=== PATIENT | female | born 1995 | race Caucasian/White ===

== ENCOUNTER 2020-08-16 08:32 | Inpatient (IN) ==
[2020-08-16] MEDS ORDERED: OXYTOCIN 30 UNITS/500 ML BAG IV PRN ×3 (08:34→09:29)
[2020-08-16 09:39] LABS: Hematocrit (blood only) 28.8 % (37-47); Hemoglobin 9.7 g/dL (12.0-16.0); Mean Corpuscular Hgb Conc 33.7 g/dL (32-36); Mean Corpuscular Volume 80.2 fL (80-100); Platelet Count 238 K/uL (130-400); RDW Coefficient of Variation 14.1 % (11.5-14.5); RDW Standard Deviation 41.4 fL (36.4-46.3); Red Blood Count 3.59 M/uL (4.2-5.4); White Blood Count 7.19 K/uL (4.8-10.8)
--- NOTE | 2020-08-16 10:06 | History & Physical Report ---
Date of Service August 16, 2020 Assessment & Plan (1) Supervision of high-risk : IOL at 39wk. Planned due to anticipating patient would be anticoagulated. In reality patient has been noncompliant, however she still desires IOL at 39wk. The IOL proceeds therefore as an essentially elective induction, which allows us to ensure she is using SCD's while in bed, and is not going to begin using her lovenox at home and then arrive in labor while actually anticoagulated. She is extremely high risk for DVT/PE given her history of same, active smoking and refusal to anticoagulate. She is also a known alliance party to local CYS teams and is aware that we will be consulting case management and obtaining a UDS to assist them in following along with her as she brings home this new . Plan for IOL is to begin with pitocin, ultimately AROM, and epidural on request. Admission and Anticipated Discharge Date Admission Date: August 16, 2020 History of Present Illness Primary Care Provider: NO PCP 25yo P3 admitted for planned IOL at 39wk due to h/o PE's with prescribed anticoagulation, patient noncompliant for at least one month and is actively smoking, plus social complications. On admission patient has no obstetric complaints. Accepts Case management consult and UDS. Aware that we will apply SCD's that must be worn while in bed. No sign of pre-existing clot on admission, varices noted however. Allergies Allergy/AdvReac Type Severity Reaction Status Date / Time No Known Allergies Allergy Verified 08/15/20 14:58 Past Med/Surg History Medical History Abnormal biochemical finding on screening of mother Asthma Very rare rescue inhaler Encounter for supervision of normal Post depression Surgical History No history of previous surgery Family History Mother Diabetes Aunt Thyroid disease Denies family history of Ovarian cancer Breast cancer Colorectal cancer Social History Smoking Status: Current every day smoker Age Started Using Tobacco: 13; packs per day: 1; Years Smoked: 13; Cigarettes Per Day: 3; Second Hand Exposure: Yes; Do You Dip or Chew Tobacco: No; Tobacco Cessation Education Requested by Patient: No Hx Alcohol Use: No Hx Substance Use: No Preferred Language: Uzbek Coding Educator Required: No Beliefs That Will Affect Care: None marital status: marital status details: Dakota Benitez (20) [phone] Current Living Situation: Family Current Living Situation Comment: NATALIA stays with her sometimes but does not live there current occupational status: employed current occupation: [employer] Other Information That Helps Us Care for You: No Feels Safe at Home: Yes Safety Concerns: Feels Safe At This Time Assistive Devices: None Physical Exam Physical Exam: /-2 intact FHT Cat 1 [place] rare ctx Results & Data Results & Data ([facility]) Vital Signs (Past 12 Hours) Vital Signs Pulse BP 08/16/20 08:44 88 114/64 Code Status & VTE Plan VTE Prophylaxis Plan VTE Prophylaxis will be ordered: Yes PG Care Time/CCT Total # of Minutes Spent Total Time Spent with Patient: Total time spent is greater than 50% in coordination of care (as documented) at patient's floor/unit and/or counseling patient: Coding Level of Care Code None Diagnoses Supervision of high-risk O09.90
[2020-08-16] MEDS: LACTATED RINGER'S 1,000 ML IV PRN ×4 (10:10→19:55)
[2020-08-16 10:27] LABS: Amphetamines+Metham, Urine Neg (Neg); Barbiturates, Urine Neg (Neg); Benzodiazepine, Urine Neg (Neg); Cocaine, Urine Neg (Neg); MDMA (Ecstacy), Urine Neg (Neg); Methadone, Urine Neg (Neg); Opiate, Urine Neg (Neg); Phencyclidine, Urine Neg (Neg)
--- NOTE | 2020-08-16 15:03 | Labor Progress Brief Note ---
Date of Service August 16, 2020 Subjective Patient asleep when I arrived. Assessment & Plan Admission and Anticipated Discharge Date Admission Date: August 16, 2020 Physical Exam Physical Exam: /-2 AROM clear FHT Cat 1 [place] Q5 Results & Data ([facility]) Vital Signs (Past 12 Hours) Vital Signs Temp Pulse Resp BP 08/16/20 14:51 71 98/56 L 08/16/20 14:11 75 96/54 L 08/16/20 12:49 74 103/63 08/16/20 11:47 72 100/55 L 08/16/20 11:10 97.5 F L 72 18 92/54 L 08/16/20 10:16 77 104/64 08/16/20 08:44 88 114/64 08/16/20 08:42 97.9 F 18 Coding Level of Care Code None
[2020-08-16] MEDS ORDERED: BUPIVACAINE 0.25% 30 ML VIAL ONE (15:58)
[2020-08-16] MEDS ORDERED: fentaNYL citrate 100 MCG/2 ML VIAL ONE (15:58)
[2020-08-16] MEDS ORDERED: SODIUM CHLORIDE 0.9% INJ 10 ML VIAL ONE (15:58)
[2020-08-16] MEDS ORDERED: ePHEDrine sulfate 50 MG/ML AMP ONE (15:58)
[2020-08-16] MEDS ORDERED: fentaNYL 2MCG/ML ROPIVACAINE 1.25MG/ML 100 ML BAG EPI ONE (15:58)
[2020-08-16] MEDS ORDERED: NALOXONE HCL 0.4 MG/1 ML VIAL/CARP IV PRN (17:07)
[2020-08-16] MEDS ORDERED: fentaNYL 2MCG/ML ROPIVACAINE 1.25MG/ML 100 ML BAG EPI PRN (17:07)
[2020-08-16] MEDS ORDERED: NALOXONE HCL 1 MG in SODIUM CHLORIDE 0.9% 1000ML 1,000 ML IV PRN (17:07)
[2020-08-16] MEDS ORDERED: diphenhydrAMINE 50 MG/ML VIAL IV PRN (17:07)
--- NOTE | 2020-08-16 17:07 | Anesthesiology Consultation ---
Date of Service August 16, 2020 Assessment & Plan (1) Encounter for pre-operative examination: Chart Review Chart Review: Patient NOT seen in Pre Admission Testing and Acceptable Risk for Labor Epidural Consults Requested none ASA ASA2 Proposed Anesthesia Anesthesia Type: Labor Epidural Risk / Benefits Reviewed With: PT / POA / Parent / Guardian, Accepts Plan and Informed Consent Obtained History Height/Weight Height: 5 ft 3 in Weight: 86.183 kg Allergies Allergy/AdvReac Type Severity Reaction Status Date / Time No Known Allergies Allergy Verified 08/15/20 14:58 Medications Active Medications Generic Name Dose Route Start Last Admin Trade Name Freq PRN Reason Stop Dose Admin Lactated Ringer's 1,000 mls @ 125 mls/hr 08/16/20 08:34 08/16/20 16:57 Lr IV 08/18/20 08:33 125 mls/hr .Q8H PRN Infusion L&D Protocol Protocol Oxytocin 30 units in 500 mls @ 17 mls/hr 08/16/20 08:37 08/16/20 15:00 Pitocin IV 08/18/20 08:36 1.02 units/hr .Q24H PRN 17 mls/hr Labor Induction/Augmentation Titration Protocol 1.02 UNITS/HR NPO Date Last Intake of Fluids: 08/16/20 Time Last Intake of Fluids: 06:00 Date Last Intake of Solids: 08/15/20 Time Last Intake of Solids: 06:00 Past Medical History Medical History Abnormal biochemical finding on screening of mother Asthma Very rare rescue inhaler Encounter for supervision of normal Post depression Exercise / Class Metabolic Activity II 4-5 Yardwork/Stairs/Walk up hill Past Family History Family History Mother Diabetes Aunt Thyroid disease Denies family history of Ovarian cancer Breast cancer Colorectal cancer Past Surgical History Surgical History No history of previous surgery Past Anesthesia History No Hx of Anesthesia Complications and No Family Hx of Anesthesia Complications History of PONV No Hx of PONV and No Hx of Motion Sickness Social History Smoking Status: Current every day smoker tobacco type: cigarettes Smoking cigarettes per day: 3 Do You Dip or Chew Tobacco: No Hx Alcohol Use: No Alcohol type: wine Hx Substance Use: No substance use type: former substance user and marijuana Last Used Substance Other:: December 2019 Physical Exam Vital Signs Last Vital Signs Temp 36.5 C 08/16/20 16:52 Pulse 93 H 08/16/20 17:00 Resp 20 08/16/20 16:52 BP 104/55 L 08/16/20 16:58 Pulse Ox 98 08/16/20 17:00 ENMT Mouth: no dentition abnormality Thyromental Distance: > or= 3.5 Finger Breadths Mallampati Class: II Neck normal visual inspection Respiratory normal respiratory effort Auscultation: lungs clear to auscultation bilaterally Cardiovascular Rate/Rhythm: regular rate and regular rhythm Psychiatric Orientation: alert Testing Laboratory Results 08/16/20 09:01
[2020-08-16] MEDS: ONDANSETRON INJ 2 MG/ML 2 ML VIAL IV PRN ×2 (17:22→23:31)
[2020-08-16] MEDS: ePHEDrine sulfate 50 MG/ML AMP IV PRN ×3 (18:53→19:33)
[2020-08-16] MEDS ORDERED: METHYLERGONOVINE MALEATE 0.2 MG/ML AMP ONE (22:57)
--- NOTE | 2020-08-16 23:07 | Delivery Summary ---
Vaginal Delivery Summary Date of Service August 16, 2020 Vaginal Delivery Summary DIAGNOSES: 1. [place] intrauterine at 39wk gestation. 2. Induction of labor due to h/o PE and anticoagulation (noncompliant / not actually anticoagulated on planned date). 3. Group B Streptococcus Neg. PROCEDURE: Spontaneous vaginal delivery without laceration. SURGEON: Vivien Zepeda MD. FOOD AND NUTRITION SERVICES ASSISTANT: None. ESTIMATED BLOOD LOSS: 500 mL. COMPLICATIONS: None. PLACENTA: Spontaneous and intact with a 3-vessel cord. DISPOSITION: Stable to labor and delivery. DESCRIPTION: The patient pushed well and brought the head to in OA position. The infant's head was allowed to deliver with contraction force and no further active pushing, with the perineum protected during this time. The shoulders delivered easily with a maternal pushing effort. There was no nuchal cord. The right shoulder was anterior, and the left hand delivered compound with the left cheek. The body delivered without any difficulty, and the was placed on the maternal abdomen. It was vigorous and moving all extremities, and making respiratory efforts. The cord was doubly clamped by the MD and then cut by the FOB. The placenta delivered spontaneously and was noted to be intact and with a 3VC. The cervix, vagina and perineum were examined and were found to be without defect requiring repair. The fundus was initially atonic and responded to bimanual massage but repeatedly became atonic again, and 0.2mg IM methergine was administered after which the fundus remained firm and lochia minimal immediately after delivery. [facility] Vaginal Delivery Charge Vaginal Delivery Codes: 31601 global code for the antepartum, delivery, and post-
[2020-08-17] MEDS ORDERED: ACETAMINOPHEN 325 MG TAB PO PRN (00:13)
[2020-08-17] MEDS ORDERED: BENZOCAINE 20% AER SPR 82.5 GM CAN EXT PRN (00:13)
[2020-08-17] MEDS ORDERED: DIPHTHERIA/TETANUS/PERTUSSIS 0.5 ML SYR/VIAL IM ONE (00:13)
[2020-08-17] MEDS ORDERED: oxyCODONE/ACETAMINOPHEN 5mg/325mg TAB PO PRN (00:13)
[2020-08-17] MEDS ORDERED: HYDROCORTISONE ACETATE 25 MG SUPP PR PRN (00:13)
[2020-08-17] MEDS ORDERED: SUPERCREAM 0.870% 15 GM JAR EXT PRN (00:13)
--- NOTE | 2020-08-17 01:17 | Anesthesia Procedure Note ---
Date of Service August 17, 2020 Anesthesia Post Epidural Note Vital Signs Vital Signs: Temp Pulse Resp BP Pulse Ox 36.4 C L 71 18 102/60 100 08/16/20 21:43 08/17/20 01:15 08/17/20 00:33 08/17/20 01:03 08/17/20 01:15 Pain Intensity Abdomen: Pain Intensity: 0 Notes Mental Status: alert / awake / arousable Nausea / Vomiting: adequately controlled Pain: adequately controlled Airway Patency, RR, SpO2: stable & adequate BP & HR: stable & adequate Hydration State: stable & adequate Neuraxial Anesthesia: was administered and sensory block is resolving Anesthetic Complications: no major complications apparent and Pt Satisfied with anesthetic care Epidural: Removed without complications and With tip intact
[2020-08-17] MEDS ORDERED: PROMETHAZINE HCL 12.5 MG in SODIUM CHLORIDE 0.9% 50 ML IV PRN (01:46)
[2020-08-17 06:31] LABS: Hematocrit (blood only) 29.7 % (37-47); Hemoglobin 9.9 g/dL (12.0-16.0); Mean Corpuscular Hemoglobin 26.5 pg (25-34); Mean Corpuscular Hgb Conc 33.3 g/dL (32-36); Mean Corpuscular Volume 79.6 fL (80-100); Mean Platelet Volume 10.5 fL (7.4-10.4); Platelet Count 203 K/uL (130-400); RDW Standard Deviation 40.6 fL (36.4-46.3); Red Blood Count 3.73 M/uL (4.2-5.4); White Blood Count 10.94 K/uL (4.8-10.8)
[2020-08-17 06:45] LABS: INR 0.9 (0.9-1.1); Prothrombin Time 9.6 Seconds (9.0-12.0)
--- NOTE | 2020-08-17 06:51 | Obstetrical Progress Note ---
Date of Service August 17, 2020 Assessment & Plan (1) Pulmonary embolism affecting : Patient noncompliant with most management including pre-delivery anticoagulation and intrpartum/ SCDs. She is ordered for lovenox and says she will accept AM lovenox later this morning but is not planning to continue after discharge. (2) state: Recovering normally, continue routine care Subjective Ambulation: ambulating normally Voiding: no voiding problems Passing Gas:: Yes Diet Tolerance:: regular diet Lochia:: Small Feeding Type:: bottle feeding Physical Exam Constitutional WD/WN, vitals as above Respiratory normal respiratory effort and able to speak in complete sentences; no respiratory distress, no labored breathing and does not use accessory muscles Cardiovascular Extremities: no calf tenderness and no pedal edema SCD's on floor, not on patient, despite RN having recently placed them back on patient herself. Skin no rashes, warm and dry Neurologic patellar DTR's 2+ bilat, sensation intact Genitourinary Speculum/Bimanual Exam: uterus nontender OB Exam Abdomen: + fundal height (at umbilicus) Fundus: + firm Results & Data ([facility]) Vital Signs (Past 12 Hours) Vital Signs Temp Pulse Pulse Resp BP BP Pulse Ox 08/17/20 06:00 97.9 F 70 18 87/56 L 08/17/20 01:45 97.7 F 73 18 101/59 L 08/17/20 01:30 83 100 08/17/20 01:25 70 100 08/17/20 01:20 72 100 08/17/20 01:18 70 99/60 L 08/17/20 01:15 71 100 08/17/20 01:10 76 100 08/17/20 01:06 78 94 08/17/20 01:05 78 93 08/17/20 01:03 77 18 102/60 08/17/20 01:00 79 94 08/17/20 00:55 93 H 93 08/17/20 00:51 72 90 08/17/20 00:50 71 100 08/17/20 00:49 68 106/59 L 08/17/20 00:45 76 100 08/17/20 00:44 77 91 08/17/20 00:40 83 92 08/17/20 00:35 83 90 08/17/20 00:33 78 18 120/74 08/17/20 00:30 93 H 100 08/17/20 00:29 77 85 L 08/17/20 00:25 82 99 08/17/20 00:24 79 93 08/17/20 00:20 70 100 08/17/20 00:18 68 120/73 08/17/20 00:15 68 100 08/17/20 00:10 71 100 08/17/20 00:05 74 100 08/17/20 00:03 75 18 119/73 08/17/20 00:00 69 100 08/16/20 23:55 78 98 08/16/20 23:50 72 98 08/16/20 23:49 69 18 124/82 08/16/20 23:45 70 100 08/16/20 23:42 74 90 08/16/20 23:40 72 100 08/16/20 23:35 85 83 L 08/16/20 23:33 76 18 114/60 92 08/16/20 23:30 78 98 08/16/20 23:27 99 H 91 08/16/20 23:25 83 96 08/16/20 23:22 92 H 92 08/16/20 23:20 76 100 08/16/20 23:19 85 18 101/54 L 08/16/20 23:15 78 100 08/16/20 23:10 80 100 08/16/20 23:09 83 88 L 08/16/20 23:07 85 18 99/52 L 08/16/20 23:05 101 H 100 08/16/20 23:00 94 H 98/67 L 100 08/16/20 22:57 86 107/63 08/16/20 22:56 85 118/80 08/16/20 22:55 84 100 08/16/20 22:50 98 H 100 08/16/20 22:48 88 88 L 08/16/20 22:45 85 100 08/16/20 22:42 105 H 87 L 08/16/20 22:40 86 100 08/16/20 22:37 89 102/59 L 08/16/20 22:35 92 H 99 08/16/20 22:30 88 18 100 08/16/20 22:27 91 H 91 08/16/20 22:26 100 H 111/64 08/16/20 22:25 87 100 08/16/20 22:21 90 92 08/16/20 22:20 88 96 08/16/20 22:17 80 106/59 L 08/16/20 22:15 80 99 08/16/20 22:10 88 100 08/16/20 22:08 95 H 116/65 08/16/20 22:05 85 100 08/16/20 22:01 84 92 08/16/20 22:00 94 H 18 99 08/16/20 21:56 81 108/66 08/16/20 21:55 86 100 08/16/20 21:50 91 H 100 08/16/20 21:47 90 104/67 08/16/20 21:45 83 100 08/16/20 21:43 97.5 F L 08/16/20 21:40 98 H 100 08/16/20 21:36 84 108/71 08/16/20 21:35 79 100 08/16/20 21:30 86 18 104/64 100 08/16/20 21:26 78 108/65 08/16/20 21:25 78 100 08/16/20 21:20 96 H 105/68 99 08/16/20 21:15 97 H 103/67 99 08/16/20 21:11 84 104/64 08/16/20 21:10 85 100 08/16/20 21:06 85 114/68 08/16/20 21:05 86 99 08/16/20 21:03 88 91 08/16/20 21:02 77 113/72 08/16/20 21:00 82 18 97 08/16/20 20:56 75 105/66 08/16/20 20:55 76 98 08/16/20 20:50 85 109/69 100 08/16/20 20:46 89 106/61 08/16/20 20:45 104 H 94 08/16/20 20:43 100 H 230/186 H 08/16/20 20:41 102 H 91 08/16/20 20:40 112 H 100 08/16/20 20:36 83 89/54 L 08/16/20 20:35 83 98 08/16/20 20:32 81 94/55 L 08/16/20 20:30 80 18 99 08/16/20 20:25 73 88/53 L 98 08/16/20 20:21 75 94/53 L 08/16/20 20:20 80 97 08/16/20 20:15 89 95/54 L 99 08/16/20 20:11 75 88/51 L 08/16/20 20:10 77 98 08/16/20 20:06 81 96/53 L 08/16/20 20:05 78 98 08/16/20 20:02 78 92/50 L 08/16/20 20:00 97 H 18 99 08/16/20 19:55 86 97/54 L 98 08/16/20 19:52 80 94/50 L 08/16/20 19:50 79 100 08/16/20 19:49 81 92/50 L 08/16/20 19:46 78 91/54 L 08/16/20 19:45 80 99 08/16/20 19:43 78 100/55 L 08/16/20 19:40 83 112/56 L 97 08/16/20 19:37 91 H 126/60 08/16/20 19:35 140 H 100 08/16/20 19:34 85 102/56 L 08/16/20 19:31 82 64/33 L 08/16/20 19:30 87 18 97 08/16/20 19:28 86 96/54 L 08/16/20 19:25 81 104/57 L 96 08/16/20 19:22 88 107/63 08/16/20 19:20 97 H 98 08/16/20 19:19 83 81/49 L 08/16/20 19:16 74 79/45 L 08/16/20 19:15 74 97 08/16/20 19:13 73 91/54 L 08/16/20 19:10 77 84/46 L 96 08/16/20 19:07 97.7 F 75 18 89/51 L 08/16/20 19:05 81 97 08/16/20 19:02 77 87/49 L 08/16/20 19:00 78 18 97 08/16/20 18:59 78 89/49 L 08/16/20 18:56 77 89/50 L 08/16/20 18:55 81 87/52 L 100 08/16/20 18:53 75 82/47 L 08/16/20 18:51 75 79/43 L 08/16/20 18:50 76 99
[2020-08-17] MEDS: PRENATAL VITAMIN 1 TAB PO SCH (08:31)
[2020-08-17] MEDS: IBUPROFEN 600 MG TAB PO PRN ×2 (08:31→17:36)
[2020-08-17] MEDS: DOCUSATE SODIUM 100 MG CAP PO SCH ×2 (08:31→20:19)
[2020-08-17] MEDS: ENOXAPARIN INJ 40 MG/0.4 ML SYR SQ SCH (09:53)
[2020-08-18] MEDS: IBUPROFEN 600 MG TAB PO PRN ×2 (03:02→08:03)
[2020-08-18 06:31] LABS: Hematocrit (blood only) 27.4 % (37-47); Hemoglobin 8.9 g/dL (12.0-16.0)
[2020-08-18 07:02] LABS: Creatinine Clr Calc Pharmacy 190.4 ml/min; Est GFR (African American) > 150.0; Est GFR (Non-African American) 137.3
--- NOTE | 2020-08-18 07:27 | Obstetrical Progress Note ---
Date of Service August 18, 2020 Assessment & Plan (1) state: PP2 s/p , meeting all milestones stable for d/c home (2) Pulmonary embolism affecting : Discussed importance of lovenox x 6 wks given history, discussed risks of not taking lovenox given hx including recurrent dvt/pe, respiratory distress, and pt verbalized understanding. Will send rx for dosing that was started in the hospital, pt is agreeable this AM Subjective Ambulation: ambulating normally Voiding: no voiding problems Passing Gas:: Yes Diet Tolerance:: regular diet Lochia:: Small Feeding Type:: bottle feeding Pain well managed with medication Review of Systems Denies fevers, chills, n/v, LEVINE, CP, SOB Physical Exam Constitutional WD/WN, vitals as above no acute distress Respiratory normal respiratory effort, lungs clear to auscultation Cardiovascular RRR, no murmur, no edema Gastrointestinal (Abdomen) Percussion/Palpation: abdomen soft; abdomen nontender fundus firm at umbilicus and NT Musculoskeletal BLE symmetric, nonerythematous, nontender Results & Data ([facility]) Vital Signs (Past 12 Hours) Vital Signs Temp Pulse Resp BP 08/17/20 23:55 98.1 F 73 18 100/64 08/17/20 20:19 97.5 F L 79 18 99/62 L
[2020-08-18] MEDS: DOCUSATE SODIUM 100 MG CAP PO SCH (08:04)
[2020-08-18] MEDS: PRENATAL VITAMIN 1 TAB PO SCH (08:04)
[2020-08-18] MEDS: ENOXAPARIN INJ 40 MG/0.4 ML SYR SQ SCH (08:43)
== END 2020-08-18 11:36 | disposition home or self-care (01) | DRG 807 ==
LOC: 4S1 08:32 → 4S2 08-17 02:18